=== PATIENT | female | born 1985 | race Caucasian/White ===

== ENCOUNTER 2020-01-28 20:13 | Emergency (ER) | payer MEDICAID ==
[~2020-01-28] VITALS: Ht 165.1 cm; Wt 65.8 kg
[2020-01-28 21:10] VITALS: BP_SYST 112
--- NOTE | 2020-01-28 21:10 | NUR ---
Patient to ER bed 6 to gown for evaluation. Side rails up. Report given to DECEMBER.
--- NOTE | 2020-01-28 21:29 | NUR ---
RECEIVED CARE. PT CALM, ALERT, RESP UNLABORED. PT FELL OUT OF BED 01/24/20 AND NO DECREASE IN PAIN, AMBULATORY. DENIES SWELLING OR HEAD INJURY. PULSES PALPABLE BLE
--- NOTE | 2020-01-28 21:45 | NUR ---
Note savanah in [facility] - 01/28/20 at 2258 by [email or web address] Patient does not wish to proceed with medical care recommended by Dr. Aldridge. Patient given information related to possible complications, up to and including , which could occur as a result of leaving hospital at this time. Patient verbalizes understanding of risks involved leaving against medical advice. Patient has signed AMA form.
[2020-01-28 22:45] VITALS: BP_SYST 114
--- NOTE | 2020-01-28 22:45 | NUR ---
Patient does not wish to proceed with medical care recommended by Dr. Aldridge. Patient given information related to possible complications, up to and including , which could occur as a result of leaving hospital at this time. Patient verbalizes understanding of risks involved leaving against medical advice. Patient has signed AMA form.
== END 2020-01-28 22:45 | disposition left against medical advice (07) ==
LOC: SED 20:13
DX: M54.9 Dorsalgia, unspecified (principal)
CPT/HCPCS: 99281

== ENCOUNTER 2020-07-06 13:47 | Emergency (ER) | payer MEDICAID ==
[~2020-07-06] VITALS: Ht 165.1 cm; Wt 72.6 kg
--- NOTE | 2020-07-06 14:00 | NUR ---
Pt walked in to ER with c/o lower back and head pain 10/10 x2 days. Reports falling. V/S stable, pt is afebrile. Currently resting in bed, will continue to monitor.
[2020-07-06 14:03] VITALS: BP_SYST 118
--- NOTE | 2020-07-06 14:05 | NUR ---
ER Dr. Bright at bedside examining patient.
[2020-07-06] MEDS ORDERED: ONDANSETRON HCL 4 MG/2 ML VIAL IVP ONE (14:15)
[2020-07-06] MEDS ORDERED: NACL 0.9% 1,000 ML IV ONE (14:15)
[2020-07-06 14:23] LABS: BILIRUBIN,URINE NEGATIVE (NEGATIVE); BLOOD, URINE NEGATIVE (NEGATIVE); CLARITY/URINE SL CLOUDY (CLEAR); COLOR,URINE YELLOW (YELLOW); GLUCOSE,URINE NEGATIVE (NEGATIVE); KETONES,URINE NEGATIVE (NEGATIVE); LEUKOCYTE ESTERASE ,URINE NEGATIVE (NEGATIVE); NITRITE, URINE NEGATIVE (NEGATIVE); PH,URINE 6.5 (5.0-8.0); PROTEIN URINE NEGATIVE (NEGATIVE); UROBILINOGEN,URINE 0.2 (0.2-1.0)
[2020-07-06 14:40] LABS: BARBITURATE, URINE NEGATIVE (NEG <=200); BENZODIAZEPINE, URINE POSITIVE (NEG <=150); CANNABINOID, URINE NEGATIVE (NEG <=50); COCAINE, URINE NEGATIVE (NEG <=150); METHAMPHETAMINES SCREEN,URINE NEGATIVE (NEG <=500); OPIATE, URINE POSITIVE (NEG <=100); PHENCYCLIDINE SCREEN,URINE NEGATIVE (NEG <=25); UR TRICYCLIC ANTIDEPRESSANTS POSITIVE (NEG <=300); URINE AMPHETAMINE NEGATIVE (NEG <=500); URINE METHADONE NEGATIVE (NEG <=200); URINE OXYCODONE SCREEN NEGATIVE (NEG <=100); URINE PROPOXYPHENE SCREEN NEGATIVE (NEG <=300)
--- NOTE | 2020-07-06 14:44 | NUR ---
Patient transported to radiology via wheelchair, accompanied by staff.
[2020-07-06] MEDS ORDERED: KETOROLAC TROMETHAMINE 30 MG VIAL IVP ONE (15:00)
[2020-07-06 15:26] LABS: RED BLOOD CELL COUNT(AUTO) 4.64 MIL/uL (4.2-6.2)
[2020-07-06 15:33] LABS: BASOPHILS # (AUTO) 0.1 K/uL (0.0-0.2); BASOPHILS % (AUTO) 0.4 % (0.0-2.0); EOSINOPHILS % (AUTO) 0.3 % (0.0-4.0); HEMATOCRIT 37.7 % (36-48); HEMOGLOBIN 12.3 g/dL (12.0-16.0); LYMPHOCYTES # (AUTO) 2.6 K/uL (1.0-5.5); LYMPHOCYTES % (AUTO) 17.8 % (20.5-51.5); MEAN CORPUSCULAR HEMOGLOBIN 27 pg (27-31); MEAN CORPUSCULAR HGB CONC 33 % (32-36); MEAN CORPUSCULAR VOLUME 81 fL (79.0-98.0); MONOCYTES # (AUTO) 0.6 K/uL (0.0-1.0); MONOCYTES % (AUTO) 4.2 % (1.7-9.3); NEUTROPHILS # (AUTO) 11.4 K/uL (1.8-7.7); NEUTROPHILS % (AUTO) 77.3 % (40.0-70.0); PLATELET COUNT (AUTO) 356 K/uL (130-430); RED CELL DISTRIBUTION WIDTH 16.9 % (9.0-15.0); WHITE BLOOD COUNT (AUTO) 14.8 K/uL (4.8-10.8)
[2020-07-06 15:36] LABS: CALCIUM 8.5 mg/dL (8.4-11.0); CREATININE 0.81 mg/dL (0.55-1.30)
[2020-07-06 15:42] LABS: ALBUMIN 4.2 g/dL (3.4-4.8); TOTAL BILIRUBIN 0.3 mg/dL (0.0-1.0)
[2020-07-06 15:53] LABS: POTASSIUM 2.9 mmol/L (3.5-5.1)
[2020-07-06 16:01] VITALS: BP_SYST 118
--- NOTE | 2020-07-06 16:02 | NUR ---
Patient given written and verbal discharge instructions and verbalizes understanding. ER MD discussed with patient the results and treatment provided. Patient in stable condition. ID arm band removed. Rx of k-dur 20meq given. Patient educated on pain management and to follow up with PMD. Pain Scale 3/10. Opportunity for questions provided and answered. Medication side effect fact sheet provided.
== END 2020-07-06 16:02 | disposition home or self-care (01) ==
LOC: SED 13:47
DX: G89.29 Other chronic pain (principal); M54.5 Low back pain
CPT/HCPCS: 36415; 70450; 72131; 76376; 80053; 80307; 81003; 85025; 96361; 96374; 96375; 99285; J1885; J2405; J7030